=== PATIENT | male | born 1990 | race Caucasian/White ===

== ENCOUNTER → 2021-05-24 14:31 | Outpatient (BNVA) | payer OTHER, SELFPAY | PROVIDERS: PCP Internal Medicine; Referring Provider Internal Medicine; Visit Provider Nurse Practitioner | DX: K58.2 Mixed irritable bowel syndrome (principal); K91.2 Postsurgical malabsorption, not elsewhere classified; G80.9 Cerebral palsy, unspecified | CPT/HCPCS: 99212 ==